=== PATIENT | male | born 1940 | race Two or more races ===

== ENCOUNTER 2023-10-20 13:05 | Inpatient (IN) | payer OTHER ==
[~2023-10-20] VITALS: Ht 162.6 cm; Wt 94.8 kg
[2023-10-20 13:50] VITALS: PULSE 53; RESP 12; O2SAT 93
[2023-10-20 14:28] LABS: Basophils # (auto) 0 10 ^3/uL (0-0.2); Basophils % (auto) 0.4 % (0.0-2.0); Eosinophils # (auto) 0.1 10 ^3/uL (0-0.8); Eosinophils % (auto) 0.7 % (0.0-7.0); Hematocrit 42.1 % (41.0-53.0); Hemoglobin 13.8 g/dL (13.5-17.5); Lymphocytes # (auto) 1.3 10 ^3/uL (0.4-5.4); Lymphocytes % (auto) 12.1 % (10.0-50.0); Mean Corpuscular Hemoglobin 27.9 pg (28.0-32.0); Mean Corpuscular Hgb Conc. 32.7 g/dL (32.0-36.0); Mean Corpuscular Volume 85.3 fL (80.0-100.0); Monocytes # (auto) 0.5 10 ^3/uL (0-1.3); Monocytes % (auto) 5.3 % (0.0-12.0); Neutrophils # (auto) 8.5 10 ^3/uL (1.6-8.6); Neutrophils % (auto) 81.5 % (37.0-80.0); Red Blood Cells 4.93 10^6/uL (4.5-5.90); Red Cell Distribution Width 14.3 % (11.8-14.3); White Blood Cell 10.4 10^3/uL (4.4-10.8)
[2023-10-20] MEDS: fentaNYL CITRATE 100 MCG/2 ML VL IV ONE (14:31)
[2023-10-20] MEDS: fentaNYL CITRATE 100 MCG/2 ML VL ONE (14:51)
[2023-10-20 14:53] LABS: Alanine Aminotransferase 15 U/L (7-40); Alkaline Phosphatase 120 U/L (46-116); Anion Gap 7 (5-15); Aspartate Aminotransferase 21 U/L (13-40); BUN/Creatinine Ratio 14.1 (10.0-20.0); Blood Urea Nitrogen 12 mg/dL (9-23); Calcium 9.8 mg/dL (8.5-10.1); Carbon Dioxide 24 mmol/L (20-30); Chloride 107 mmol/L (98-107); Glucose 143 mg/dL (74-106); Potassium 4.2 mmol/L (3.5-5.1); Sodium 138 mmol/L (136-145)
[2023-10-20 14:54] LABS: Bilirubin, Total 0.4 mg/dL (0.2-1.0); Total Protein 6.2 g/dL (5.7-8.2)
[2023-10-20] MEDS ORDERED: ONDANSETRON HCL 4 MG/2 ML VIAL IV PRN (17:00)
[2023-10-20] MEDS ORDERED: ACETAMINOPHEN 325 MG TAB PO PRN (17:00)
[2023-10-20] MEDS ORDERED: NITROGLYCERIN 0.4 MG SL TAB SL PRN (17:00)
[2023-10-20] MEDS ORDERED: MORPHINE SULFATE INJ 2 MG/ml SYRG IV PRN (17:00)
[2023-10-20] MEDS: MORPHINE SULFATE INJ 2 MG/ml SYRG IV PRN (17:59)
[2023-10-20] MEDS: PANTOPRAZOLE 40 MG TAB PO ONE (18:35)
[2023-10-20 19:45] VITALS: PULSE 69; RESP 12; O2SAT 94
[2023-10-20 22:54] LABS: Urine Bacteria FEW /hpf (None Seen); Urine Blood Negative /uL (Negative); Urine Clarity Clear (Clear); Urine Color Yellow (Yellow); Urine Mucus FEW (None Seen); Urine Protein, UAD TRACE (Negative); Urine Urobilinogen Normal (Negative); Urine WBC 1 /hpf (0 - 3); Urine pH 5.5 (5.0-9.0)
[2023-10-20 23:52] VITALS: BP 130/62; PULSE 61; RESP 18; TEMP 98; O2SAT 94
[2023-10-21] VITALS (14 sets, daily range): BP systolic 94–147; BP diastolic 53–91; PULSE 55–82; RESP 16–19; TEMP 97.7–98.7; O2SAT 91–100
[2023-10-21 06:07] LABS: Basophils # (auto) 0 10 ^3/uL (0-0.2); Basophils % (auto) 0.3 % (0.0-2.0); Eosinophils # (auto) 0.1 10 ^3/uL (0-0.8); Hematocrit 36.8 % (41.0-53.0); Hemoglobin 12.2 g/dL (13.5-17.5); Lymphocytes % (auto) 32.4 % (10.0-50.0); Mean Corpuscular Hemoglobin 28.3 pg (28.0-32.0); Mean Corpuscular Volume 85.5 fL (80.0-100.0); Monocytes # (auto) 0.6 10 ^3/uL (0-1.3); Monocytes % (auto) 9.4 % (0.0-12.0); Neutrophils # (auto) 3.5 10 ^3/uL (1.6-8.6); Neutrophils % (auto) 56.9 % (37.0-80.0); Nucleated Red Blood Cells % 0.1 %; Red Blood Cells 4.31 10^6/uL (4.5-5.90); Red Cell Distribution Width 14.3 % (11.8-14.3); White Blood Cell 6.2 10^3/uL (4.4-10.8)
[2023-10-21 06:10] LABS: INR 1.12 (0.9-1.15); Partial Thromboplastin Time 26.8 SEC (24.5-34.5); Prothrombin Time 11.7 sec (9.3-11.8)
[2023-10-21 06:12] LABS: Alanine Aminotransferase 13 U/L (7-40); Albumin 3.6 g/dL (3.2-4.8); Alkaline Phosphatase 105 U/L (46-116); Anion Gap 7 (5-15); Aspartate Aminotransferase 20 U/L (13-40); BUN/Creatinine Ratio 15.7 (10.0-20.0); Bilirubin, Total 0.7 mg/dL (0.2-1.0); Blood Urea Nitrogen 14 mg/dL (9-23); Calcium 9.6 mg/dL (8.5-10.1); Carbon Dioxide 24 mmol/L (20-30); Chloride 106 mmol/L (98-107); Glucose 144 mg/dL (74-106); Sodium 137 mmol/L (136-145); Total Protein 5.6 g/dL (5.7-8.2)
[2023-10-21] MEDS: PANTOPRAZOLE 40 MG TAB PO SCH (09:06)
[2023-10-21] MEDS: HYDROcodone-ACET 5/325MG TAB PO PRN (09:06)
[2023-10-21] MEDS: ENOXAPARIN SOD 40 MG/0.4 ML SYRINGE SC SCH (10:00)
[2023-10-21] MEDS ORDERED: ceFAZolin 2 GM/D5W50ml 50 ML IV ONE (11:14)
[2023-10-21] MEDS ORDERED: BUPIVACAINE 0.5% P/F INJ 10 ML VIAL ONE (11:27)
[2023-10-21] MEDS ORDERED: KETOROLAC TROMETH 30 MG/ML 1ML VIAL ONE (11:33)
[2023-10-21] MEDS ORDERED: MORPHINE SULF PF 5 MG/10 ML VIAL ONE (11:33)
[2023-10-21] MEDS ORDERED: fentaNYL CITRATE 100 MCG/2 ML VL ONE (11:33)
[2023-10-21] MEDS ORDERED: PROPOFOL 10 MG/ML 20 ML IV ONE (11:33)
[2023-10-21] MEDS ORDERED: KETAMINE 50mg/ML 1ml syringe ONE (11:33)
[2023-10-21] MEDS ORDERED: ePHEDrine SULFATE 50 MG/ML AMP ONE (11:33)
[2023-10-21] MEDS ORDERED: MIDAZOLAM HCL 2MG/2ML 2ml VIAL (1mg/ml) ONE (11:33)
[2023-10-21] MEDS ORDERED: ONDANSETRON HCL 4 MG/2 ML VIAL ONE (11:33)
[2023-10-21] MEDS ORDERED: DexAMETHasone SOD PHOS 10MG/1ML VIAL INJ ONE (11:33)
[2023-10-21] MEDS ORDERED: GLYCOPYRROLATE 0.2 MG/ML 1ML VIAL ONE (11:33)
[2023-10-21] MEDS ORDERED: BUPIVACAINE 0.25% INJ 50ML VIAL ONE (12:56)
[2023-10-21] MEDS ORDERED: KETOROLAC TROMETH 30 MG/ML 1ML VIAL IV PRN (13:30)
[2023-10-21] MEDS ORDERED: DexAMETHasone SOD PHOS 10MG/1ML VIAL INJ IV PRN (13:30)
[2023-10-21] MEDS ORDERED: diphenhdrAMINE HCL 50 MG/1 ML VL IV PRN (13:30)
[2023-10-21] MEDS ORDERED: NALOXONE HCL 0.4 MG/ML VIAL IV PRN (13:30)
[2023-10-21] MEDS: ONDANSETRON HCL 4 MG/2 ML VIAL IV ONE (13:30)
[2023-10-21] MEDS: ceFAZolin 1GM/50ML 50 ML IV SCH (16:38)
[2023-10-21] MEDS: ONDANSETRON HCL 4 MG/2 ML VIAL IV PRN (17:24)
[2023-10-21] MEDS ORDERED: DEXTROSE (50%) 50ML SYRG IV PRN (22:30)
[2023-10-21] MEDS: ATORVASTATIN 20 MG TAB PO ONE (23:20)
[2023-10-22] VITALS (22 sets, daily range): BP systolic 102–132; BP diastolic 50–97; PULSE 55–88; RESP 16–69; TEMP 97.6–98.9; O2SAT 92–98
[2023-10-22 05:50] LABS: Basophils # (auto) 0 10 ^3/uL (0-0.2); Basophils % (auto) 0.1 % (0.0-2.0); Eosinophils # (auto) 0 10 ^3/uL (0-0.8); Hematocrit 34.5 % (41.0-53.0); Hemoglobin 11.4 g/dL (13.5-17.5); Lymphocytes % (auto) 14.6 % (10.0-50.0); Mean Corpuscular Hemoglobin 28.3 pg (28.0-32.0); Mean Corpuscular Volume 85.8 fL (80.0-100.0); Monocytes # (auto) 0.7 10 ^3/uL (0-1.3); Monocytes % (auto) 9.8 % (0.0-12.0); Neutrophils # (auto) 5.4 10 ^3/uL (1.6-8.6); Neutrophils % (auto) 75.5 % (37.0-80.0); Red Blood Cells 4.03 10^6/uL (4.5-5.90); Red Cell Distribution Width 13.9 % (11.8-14.3); White Blood Cell 7.1 10^3/uL (4.4-10.8)
[2023-10-22 06:07] LABS: Alanine Aminotransferase 12 U/L (7-40); Albumin 3.6 g/dL (3.2-4.8); Alkaline Phosphatase 98 U/L (46-116); Anion Gap 5 (5-15); Aspartate Aminotransferase 20 U/L (13-40); Blood Urea Nitrogen 16 mg/dL (9-23); Carbon Dioxide 27 mmol/L (20-30); Chloride 105 mmol/L (98-107); Glucose 149 mg/dL (74-106); LDL Cholesterol 107 mg/dL (< 100); Potassium 4.7 mmol/L (3.5-5.1); Sodium 137 mmol/L (136-145); Triglycerides 108 mg/dL (< 150)
[2023-10-22 06:08] LABS: Bilirubin, Total 0.7 mg/dL (0.2-1.0); Cholesterol 145 mg/dL (< 200); HDL Cholesterol 28 mg/dL (40-59); Total Protein 5.6 g/dL (5.7-8.2)
[2023-10-22] MEDS: InsuLIN REG 1unit/0.01ml Soln (100units/ml) SC SCH (06:11)
[2023-10-22] MEDS: ACCU-CHEK COMFORT CURVE STRIP VI SCH (06:11)
[2023-10-22 06:24] LABS: Magnesium 1.9 mg/dL (1.6-2.6)
[2023-10-22 08:06] LABS: PSA Free 0.31 ng/mL; Prostate Specific Antigen 1.2 ng/mL (0.0-4.0)
[2023-10-22] MEDS: ERGOCALCIFEROL 50,000 UNIT(1.25MG) CAP PO SCH (09:27)
[2023-10-22] MEDS ORDERED: ERGOCALCIFEROL 50,000 UNIT(1.25MG) CAP PO SCH (10:00)
[2023-10-22] MEDS: HYDROcodone-ACET 5/325MG TAB PO PRN (15:53)
[2023-10-22] MEDS: APIXABAN 2.5 MG TAB PO SCH (22:20)
[2023-10-22] MEDS: ATORVASTATIN 20 MG TAB PO SCH (22:20)
[2023-10-23 05:06] LABS: Basophils # (auto) 0 10 ^3/uL (0-0.2); Basophils % (auto) 0.3 % (0.0-2.0); Eosinophils # (auto) 0.1 10 ^3/uL (0-0.8); Eosinophils % (auto) 0.8 % (0.0-7.0); Hematocrit 37.4 % (41.0-53.0); Hemoglobin 12.1 g/dL (13.5-17.5); Lymphocytes # (auto) 3.6 10 ^3/uL (0.4-5.4); Lymphocytes % (auto) 32.6 % (10.0-50.0); Mean Corpuscular Hemoglobin 27.8 pg (28.0-32.0); Mean Corpuscular Hgb Conc. 32.4 g/dL (32.0-36.0); Monocytes # (auto) 1.3 10 ^3/uL (0-1.3); Monocytes % (auto) 11.9 % (0.0-12.0); Neutrophils # (auto) 6.1 10 ^3/uL (1.6-8.6); Neutrophils % (auto) 54.4 % (37.0-80.0); Red Blood Cells 4.35 10^6/uL (4.5-5.90); Red Cell Distribution Width 13.9 % (11.8-14.3); White Blood Cell 11.2 10^3/uL (4.4-10.8)
[2023-10-23 05:07] VITALS: BP 122/54; PULSE 75; RESP 18; TEMP 98.3; O2SAT 94
[2023-10-23 05:14] LABS: Alanine Aminotransferase 15 U/L (7-40); Albumin 3.8 g/dL (3.2-4.8); Alkaline Phosphatase 101 U/L (46-116); Anion Gap 6 (5-15); Aspartate Aminotransferase 26 U/L (13-40); BUN/Creatinine Ratio 16.5 (10.0-20.0); Bilirubin, Total 0.6 mg/dL (0.2-1.0); Blood Urea Nitrogen 16 mg/dL (9-23); Calcium 10.1 mg/dL (8.7-10.4); Carbon Dioxide 29 mmol/L (20-30); Chloride 102 mmol/L (98-107); Glucose 137 mg/dL (74-106); Potassium 4.1 mmol/L (3.5-5.1); Sodium 137 mmol/L (136-145); Total Protein 6.4 g/dL (5.7-8.2)
[2023-10-23 08:24] VITALS: BP 103/57; PULSE 81; RESP 19; TEMP 98.4; O2SAT 94
[2023-10-23 12:30] VITALS: BP 114/49; PULSE 79; RESP 18; TEMP 98.7; O2SAT 99
[2023-10-23] MEDS: DOCUSATE SOD 100 MG CAP PO PRN (14:19)
[2023-10-23 16:39] VITALS: BP 115/55; PULSE 69; RESP 18; TEMP 99.2; O2SAT 94
[2023-10-23 22:30] VITALS: BP 114/57; PULSE 67; RESP 18; TEMP 99; O2SAT 98
[2023-10-24 05:28] VITALS: BP 120/71; PULSE 72; RESP 18; TEMP 99.1; O2SAT 97
[2023-10-24 05:58] LABS: Basophils # (auto) 0 10 ^3/uL (0-0.2); Basophils % (auto) 0.4 % (0.0-2.0); Eosinophils # (auto) 0.1 10 ^3/uL (0-0.8); Eosinophils % (auto) 1.7 % (0.0-7.0); Hematocrit 31.2 % (41.0-53.0); Hemoglobin 10.5 g/dL (13.5-17.5); Lymphocytes # (auto) 1.7 10 ^3/uL (0.4-5.4); Lymphocytes % (auto) 23.5 % (10.0-50.0); Mean Corpuscular Hemoglobin 28.6 pg (28.0-32.0); Mean Corpuscular Hgb Conc. 33.6 g/dL (32.0-36.0); Mean Corpuscular Volume 85.4 fL (80.0-100.0); Monocytes # (auto) 0.9 10 ^3/uL (0-1.3); Monocytes % (auto) 12.4 % (0.0-12.0); Neutrophils # (auto) 4.5 10 ^3/uL (1.6-8.6); Nucleated Red Blood Cells % 0.1 %; Red Blood Cells 3.66 10^6/uL (4.5-5.90); Red Cell Distribution Width 13.9 % (11.8-14.3); White Blood Cell 7.2 10^3/uL (4.4-10.8)
[2023-10-24 06:29] LABS: Alanine Aminotransferase 11 U/L (7-40); Albumin 3.2 g/dL (3.2-4.8); Alkaline Phosphatase 82 U/L (46-116); Anion Gap 7 (5-15); Aspartate Aminotransferase 19 U/L (13-40); Blood Urea Nitrogen 10 mg/dL (9-23); Calcium 9.4 mg/dL (8.7-10.4); Carbon Dioxide 29 mmol/L (20-30); Chloride 100 mmol/L (98-107); Glucose 125 mg/dL (74-106); Magnesium 1.8 mg/dL (1.6-2.6); Potassium 3.9 mmol/L (3.5-5.1); Sodium 136 mmol/L (136-145)
[2023-10-24 06:30] LABS: Bilirubin, Total 0.9 mg/dL (0.2-1.0); Total Protein 5.4 g/dL (5.7-8.2)
[2023-10-24] MEDS ORDERED: ATOR20TA50 PO (06:52)
[2023-10-24] MEDS ORDERED: APIX2.5T PO (06:52)
[2023-10-24] MEDS ORDERED: ACET-1882 PO (06:52)
[2023-10-24] MEDS ORDERED: METF500S3 PO (06:52)
[2023-10-24] MEDS ORDERED: ERGO1CAP23 PO (06:52)
[2023-10-24] MEDS ORDERED: PANT40T PO (06:52)
[2023-10-24 08:00] VITALS: PULSE 68; RESP 19; O2SAT 98
[2023-10-24 08:20] VITALS: BP 125/63; PULSE 65; RESP 18; TEMP 98.4; O2SAT 96
[2023-10-24] MEDS ORDERED: LACTULOSE 20Gm/30ML SOLN PO PRN (10:00)
[2023-10-24 12:36] VITALS: BP 107/51; PULSE 68; RESP 19; TEMP 99.2; O2SAT 94
[2023-10-24] MEDS: LACTULOSE 20Gm/30ML SOLN PO ONE (15:44)
[2023-10-24 16:35] VITALS: BP 123/53; PULSE 58; RESP 17; TEMP 99.3; O2SAT 92
[2023-10-24 21:00] VITALS: BP 106/47; PULSE 66; RESP 18; TEMP 99.2; O2SAT 95
[2023-10-24] MEDS: LACTULOSE 20Gm/30ML SOLN PO SCH (22:00)
[2023-10-25 00:47] VITALS: BP 124/59; PULSE 69; RESP 16; TEMP 97; O2SAT 95
[2023-10-25 05:00] VITALS: BP 136/55; PULSE 71; RESP 17; TEMP 97; O2SAT 95
[2023-10-25 05:49] LABS: Basophils # (auto) 0 10 ^3/uL (0-0.2); Basophils % (auto) 0.4 % (0.0-2.0); Eosinophils # (auto) 0.2 10 ^3/uL (0-0.8); Eosinophils % (auto) 3.4 % (0.0-7.0); Hematocrit 31.1 % (41.0-53.0); Hemoglobin 10.4 g/dL (13.5-17.5); Lymphocytes # (auto) 1.7 10 ^3/uL (0.4-5.4); Lymphocytes % (auto) 25.7 % (10.0-50.0); Mean Corpuscular Hemoglobin 28.4 pg (28.0-32.0); Mean Corpuscular Hgb Conc. 33.4 g/dL (32.0-36.0); Mean Corpuscular Volume 85.1 fL (80.0-100.0); Monocytes # (auto) 0.8 10 ^3/uL (0-1.3); Neutrophils # (auto) 3.8 10 ^3/uL (1.6-8.6); Neutrophils % (auto) 58.5 % (37.0-80.0); Red Blood Cells 3.66 10^6/uL (4.5-5.90); Red Cell Distribution Width 13.8 % (11.8-14.3); White Blood Cell 6.5 10^3/uL (4.4-10.8)
[2023-10-25 05:56] LABS: Alanine Aminotransferase 12 U/L (7-40); Albumin 3.1 g/dL (3.2-4.8); Alkaline Phosphatase 81 U/L (46-116); Anion Gap 3 (5-15); Aspartate Aminotransferase 18 U/L (13-40); BUN/Creatinine Ratio 12.3 (10.0-20.0); Bilirubin, Total 0.9 mg/dL (0.2-1.0); Blood Urea Nitrogen 9 mg/dL (9-23); Calcium 9.3 mg/dL (8.7-10.4); Carbon Dioxide 31 mmol/L (20-30); Chloride 103 mmol/L (98-107); Glucose 120 mg/dL (74-106); Potassium 3.8 mmol/L (3.5-5.1); Sodium 137 mmol/L (136-145); Total Protein 5.4 g/dL (5.7-8.2)
[2023-10-25 08:00] VITALS: RESP 19
[2023-10-25 09:00] VITALS: BP 108/55; PULSE 65; RESP 17; TEMP 99.1; O2SAT 92
[2023-10-25 13:00] VITALS: BP 114/61; PULSE 72; RESP 17; TEMP 98.8; O2SAT 93
[2023-10-25 17:00] VITALS: BP 120/47; PULSE 70; RESP 17; TEMP 100; O2SAT 93
== END 2023-10-25 17:30 | disposition home health service (06) | DRG 308 ==
LOC: ER 13:05 → TELE 16:58 → TELE-CENTR 23:10 → CENTRAL 10-22 23:50
PROVIDERS: ADMIT Internal Medicine; ATTEND Emergency Medicine
PROC: 0QSB04Z Reposition Right Lower Femur with Internal Fixation Device, Open Approach (ICD-10-PCS; principal; 2023-10-21 11:42)
DX: S72.401A Unspecified fracture of lower end of right femur, initial encounter for closed fracture (principal); K76.89 Other specified diseases of liver; E55.9 Vitamin D deficiency, unspecified; K22.89 Other specified disease of esophagus; N28.1 Cyst of kidney, acquired; N40.0 Benign prostatic hyperplasia without lower urinary tract symptoms; W18.39XA Other fall on same level, initial encounter; E78.5 Hyperlipidemia, unspecified; Y92.89 Other specified places as the place of occurrence of the external cause; M19.90 Unspecified osteoarthritis, unspecified site; R73.03 Prediabetes; Y93.89 Activity, other specified; Y99.8 Other external cause status
CPT/HCPCS: 36415; 71045; 72170; 74176; 76000; 80053; 80061; 81001; 82306; 82607; 82962; 83036; 83605; 83735; 84154; 84443; 84484; 85025; 85610; 85730; 86850; 86900; 86901; 93005; 93306; 96374; 97110; 97116; 97530; G0378; J1100; J1815; J1885; J2250; J2405; J2704; J3490